=== PATIENT | male | born 1975 | race Caucasian/White ===

== ENCOUNTER 2018-02-09 19:14 | Emergency (ER) | payer OTHER ==
[2018-02-09 19:20] VITALS: BP 131/87; PULSE 99; TEMP 98.7; BMI 31.6
--- NOTE | 2018-02-09 20:11 | PDOC ---
History of Present Illness - General History Source: Patient - History of Present Illness Initial Comments: 02/09/18 20:30 42 year old male with a PMH of umbilical hernia presents to the ED c/o 4 day h/ o hemorrhoids. Patient states he noticed the hemorrhoid four days previous and they became painful the last 2 days prompting his visit to our ED today. Patient notes he has had hemorrhoids on one prior occasion which resolved in 2- 3 days using OTC Preparation H however it did not work on these hemorrhoids. Patient's last bowel movement was prior to presentation and he denies any noticed blood or tenesmus. Patient denies a baseline h/o constipation. NKDA Surgical: umbilical hernia repair Social: denies nicotine, denies recreational drugs PMD: Dr. Analisa Paniagua <Mayi Hunter - Last Filed: 02/10/18 03:02> <Ezequiel Wills - Last Filed: 02/12/18 17:34> - General Chief Complaint: Pain Stated Complaint: Hemorrhoids Time Seen by Provider: 02/09/18 19:54 Past History - Past Medical History COPD: No - Surgical History Abdominal Surgery: Yes (umbilical hernia) - Suicide/Smoking/Psychosocial Hx Smoking History: Never smoked Hx Alcohol Use: No Drug/Substance Use Hx: No Substance Use Type: None <Mayi Hunter - Last Filed: 02/10/18 03:02> <Ezequiel Wills - Last Filed: 02/12/18 17:34> - Past Medical History Allergies/Adverse Reactions: Allergies Allergy/AdvReac Type Severity Reaction Status Date / Time No Known Allergies Allergy Verified 02/09/18 19:18 Home Medications: Ambulatory Orders Hydrocortisone [Preparation H] 26 gm TP ASDIR 02/09/18 Review of Systems - Review of Systems Constitutional: No: Chills, Fever Respiratory: No: Cough, Shortness of Breath Cardiac (ROS): No: Chest Pain, Lightheadedness, Palpitations ABD/GI: No: Constipated, Diarrhea, Nausea, Vomiting : No: Burning, Dysuria <Mayi Hunter - Last Filed: 02/10/18 03:02> *Physical Exam - Vital Signs Last Vital Signs Temp Pulse Resp BP Pulse Ox 98.7 F 99 H 22 131/87 99 02/09/18 19:19 02/09/18 19:19 02/09/18 19:19 02/09/18 19:19 02/09/18 19:19 - Physical Exam Comments: 02/09/18 22:03 GENERAL: Awake, alert, and fully oriented HEAD: No signs of trauma EYES: PERRLA, EOMI, sclera anicteric, conjunctiva clear ENT: Auricles normal inspection, hearing grossly normal, nares patent, oropharynx clear without exudates. Moist mucosa LUNGS: Breath sounds equal, clear to auscultation bilaterally. No wheezes, and no crackles HEART: Regular rate and rhythm, normal S1 and S2, no murmurs, rubs or gallops ABDOMEN: Soft, nontender, normoactive bowel sounds. No guarding, no rebound. No masses EXTREMITIES: Normal range of motion, no edema. No clubbing or cyanosis. No cords, erythema, or tenderness NEUROLOGICAL: Cranial nerves II through XII intact. 5/5 strength and sensation in all extremities, Normal speech, normal gait, normal cerebellar function SKIN: Warm, Dry, multiple external hemorrhoids; ovoid, hard 2.5 cm diameter - thrombosed; 0.5 cm diameter ovoid hemorrhoid x2 - soft <Mayi Hunter - Last Filed: 02/10/18 03:02> - Vital Signs Last Vital Signs Temp Pulse Resp BP Pulse Ox 98.7 F 99 H 22 131/87 99 02/09/18 19:19 02/09/18 19:19 02/09/18 19:19 02/09/18 19:19 02/09/18 19:19 <Ezequiel Wills - Last Filed: 02/12/18 17:34> ED Treatment Course - Medications Given in the ED: ED Medications Discontinued Medications Generic Name Dose Route Start Last Admin Trade Name Freq PRN Reason Stop Dose Admin Lidocaine HCl 10 ml 02/09/18 20:25 02/09/18 20:39 Xylocaine 2% Uro-Jet FL 02/09/18 20:26 10 ml ONCE ONE Administration <Ezequiel Wills - Last Filed: 02/12/18 17:34> Medical Decision Making - Medical Decision Making 02/09/18 21:43 42 year old male presents with external thrombosed hemmorhoid. VS unremarkable. Normal BM w/o any noticed rectal bleeding. 02/10/18 02:12 Application of viscous lidocaine with significant pain relief. Patient referred to general surgery for excision. I discussed the physical exam findings, ancillary test results and final diagnoses with the patient. I answered all of the patient's questions. The patient was satisfied with the care received and felt comfortable with the discharge plan and treatment plan. The patient will return to the Emergency Department with any new, persistent or worsening symptoms. <Mayi Hunter - Last Filed: 02/10/18 03:02> *DC/Admit/Observation/Transfer - Discharge Dispostion Admit: No <Mayi Hunter - Last Filed: 02/10/18 03:02> <Ezequiel Wills - Last Filed: 02/12/18 17:34> Diagnosis at time of Disposition: Thrombosed external hemorrhoid - Discharge Dispostion Disposition: HOME Condition at time of disposition: Good - Referrals Referrals: Analisa Paniagua [Primary Care Provider] - Stiven Rueda MD [Staff Physician] - - Patient Instructions Printed Discharge Instructions: DI for Hemorrhoids Additional Instructions: Please make a follow-up appointment with general surgery, Dr. Stiven Rueda, for excision of your hemorrhoid. Overnight, you can continue to apply the lidocaine jelly for pain relief. To prevent future hemorrhoids drink lots of water and eat a lot of fiber including leafy green vegetables. Follow up with your primary care doctor in the next 2 days for further evaluation and return to the Emergency Department for any new/worsening/ concerning symptoms. - Post Discharge Activity Forms/Work/School Notes: Back to Work
--- NOTE | 2018-02-09 20:18 | PDOC ---
Attending Attestation - Resident Resident Name: Mateusz Hunterica - ED Attending Attestation I have performed the following: I have examined & evaluated the patient, The case was reviewed & discussed with the resident, I agree w/resident's findings & plan, Exceptions are as noted - HPI HPI: 02/09/18 20:25 42y M hx hernia presents with increased rectal pain x 4 days, pt notes that he had increased rectal pain after having a BM 4 days ago. constant nonradiating pain, no ever/chills, n/v, diarrhea, melena.pt iwth prior history of hemorroids but has never been painful for so long. pt using preparation H with out significant improvement pt with thrombosed hemorroid that is painful to touch. no signs of erythema/ induration/fluctuance will give topical lido will refer to surgery - Physicial Exam PE: 02/10/18 08:30 see above - Medical Decision Making 02/10/18 08:30 florentin asenz
[2018-02-09] MEDS ORDERED: LIDOCAINE HCL 2% JELLY 10 ML CARTRIDGE PR ONE (20:25)
[2018-02-09] MEDS ORDERED: LIDOCAINE HCL 2% JELLY (5 ML/TUBE) ONE (20:34)
[2018-02-09] MEDS ORDERED: LIDOCAINE HCL 2% JELLY 10 ML CARTRIDGE ONE (20:35)
== END 2018-02-09 22:10 | disposition home or self-care (01) ==
LOC: JER 19:14
DX: K64.5 Perianal venous thrombosis (principal)
CPT/HCPCS: 99282-25

== ENCOUNTER 2018-11-13 05:17 | Day surgery (SDC) | payer OTHER ==
[2018-11-11 11:38] VITALS: BMI 35.2
[2018-11-13 08:46] LABS: HEMATOCRIT 47.5 % (35.4-49); HEMOGLOBIN 16.4 GM/dL (11.7-16.9); MCH 29.8 pg (25.7-33.7); MCHC 34.5 g/dl (32.0-35.9); MEAN CELL VOLUME 86.4 fl (80-96); MEAN PLT VOLUME 8.8 fl (7.5-11.1); PLATELET COUNT 270 K/MM3 (134-434); RDW 14.2 % (11.9-15.9); WHITE BLOOD COUNT 6.2 K/mm3 (4.0-10.0)
[2018-11-13] MEDS ORDERED: PROPOFOL 20 ML ONE ×3 (09:44→10:17)
[2018-11-13] MEDS ORDERED: MIDAZOLAM HCL 2 MG/2 ML SINGLE DOSE VIAL ONE (09:44)
[2018-11-13] MEDS ORDERED: ROCURONIUM BROMIDE 50 MG/5 ML VIAL ONE (09:55)
[2018-11-13] MEDS ORDERED: BUPIVACAINE HCL/PF 0.5% (5MG/ML) 10 ML VIAL ONE (10:01)
[2018-11-13] MEDS ORDERED: LIDOCAINE HCL 1%, 10 MG/ML (20ML VIAL) ONE (10:01)
--- NOTE | 2018-11-13 10:01 | HP ---
History & Physical Update - History History: No Change - Physical Physical: No Change - Assessment Assessment: No Change - Plan Plan: No Change (for EUA/rigid sigmoidoscopy/external; possible internal hemorrhoidectomy; r/b/t/a/'s d/w him pre-op and informed consent obtained.)
[2018-11-13] MEDS ORDERED: BENZOIN TINCTURE SWABSTICK TP ONE (10:32)
[2018-11-13] MEDS ORDERED: BUPIVACAINE HCL/PF (5 MG/ML) 30 ML VIAL IJ ONE (10:59)
[2018-11-13] MEDS ORDERED: LIDOCAINE HCL 1%, 10 MG/ML (20ML VIAL) PNB ONE (10:59)
[2018-11-13] MEDS ORDERED: NEOSTIGMINE METHYLSULFATE 0.5 MG/ML - 10 ML MDV ONE (11:15)
[2018-11-13] MEDS ORDERED: PHENYLEPHRINE HCL 10 MG/1 ML SINGLE DOSE VIAL ONE (11:15)
[2018-11-13] MEDS ORDERED: KETOROLAC TROMETHAMINE 30 MG/1 ML VIAL ONE (11:18)
[2018-11-13] MEDS ORDERED: GLYCOPYRROLATE 0.2 MG/1 ML VIAL ONE (11:18)
[2018-11-13] MEDS ORDERED: oxyCODONE HCL 5 MG TABLET PO PRN (12:37)
[2018-11-13] MEDS ORDERED: ONDANSETRON 4 MG/2 ML VIAL IVPUSH PRN (12:37)
[2018-11-13] MEDS ORDERED: LACTATED RINGERS SOLUTION 1,000 ML IV SCH (12:45)
[2018-11-13 17:14] VITALS: BP 100/63; PULSE 68; TEMP 98.2
--- NOTE | 2018-11-13 21:50 | OP ---
DATE OF OPERATION: 11/13/2018 PREOPERATIVE DIAGNOSIS: External hemorrhoids, rule out further pathology. POSTOPERATIVE DIAGNOSIS: External hemorrhoids. PROCEDURE: Examination under anesthesia, rigid proctosigmoidoscopy, and external single hemorrhoidectomy. SURGEON: Stiven Rueda MD ANESTHESIA: General. OPERATIVE FINDINGS: There was a single enlarged external hemorrhoidal complex. The rest of the findings were unremarkable. DESCRIPTION OF PROCEDURE: The patient was placed on the operating table in the supine jackknife position. After the induction of general anesthesia, in the supine position on a stretcher, patient was appropriately padded while in the prone jackknife position. The buttocks were taped laterally on each side to provide maximum exposure, and then, a timeout was taken. Rigid proctosigmoidoscopy was carried out where the previously noted findings were observed. Next, local anesthesia in the perianal area was placed with 1% Xylocaine and 0.5% Marcaine in equal concentration. The external hemorrhoidal complex was grasped, and the anoderm and mucosa incised with the electrocautery. Fixation stitch of 3-0 chromic was placed at the base of the hemorrhoidal complex and tied, and then, the external hemorrhoid dissected off the sphincter mechanism using blunt and sharp dissection. Once dissection was carried up to the fixating suture, the hemorrhoidal complex was removed and sent for pathological examination, and the mucosa and anoderm closed using continuous locked 3-0 chromic. No further pathology was evident for excision. Then, the wound was dressed with Xeroform gauze and dry sterile dressings and the procedure terminated at this point and the patient aroused from general anesthesia after being turned into the supine position on a stretcher and subsequently transferred to the postanesthesia care unit in stable condition, awake and alert. ESTIMATED BLOOD LOSS: None. SPECIMENS: External hemorrhoidal complex to Pathology. I, Stiven Rueda, was physically present in the operating room from the time the patient was placed on the operating table until he was transferred to the postanesthesia care unit in my accompaniment. MD NITESH Cornejo/[id number] MTDD
--- NOTE | 2018-11-16 17:15 | PATH ---
Surgical Pathology Report Patient Name: JENNIFER ARRIOLA [facility]. Rec. #: [id number] /Age/Gender: 1975 (Age: 43) / M Account: [id number] Location: [facility] SURGICAL Taken: 11/13/2018 Received: 11/13/2018 Reported: 11/16/2018 Physicians: Stiven Rueda MD Specimen(s) Received EXTERNAL HEMORRHOID Clinical History External hemorrhoid Final Diagnosis EXTERNAL HEMORRHOIDS, HEMORRHOIDECTOMY: POLYPOID SQUAMOUS MUCOSA WITH MODERATE CHRONIC FOCAL ACUTE INFLAMMATION AND FEW DILATED THICK WALLED CONGESTED SUBMUCOSAL VESSELS CONSISTENT WITH HEMORRHOIDS. Electronically Signed Analisa Alas M.D. Gross Description Received in formalin labeled "external hemorrhoid," is a 2.1 x 2.0 x 0.6 cm duran, polypoid portion of skin. The base is inked blue and the specimen is bisected and entirely submitted in 2 cassettes. DL/11/13/2018 saudi11/13/2018
== END 2018-11-13 16:45 | disposition home or self-care (01) ==
LOC: JASU-SURG 05:17
PROVIDERS: ATTEND Surgery
PROC: 06BY0ZC Excision of Hemorrhoidal Plexus, Open Approach (ICD-10-PCS; principal; 2018-11-13 10:00)
DX: K64.8 Other hemorrhoids (principal)
CPT/HCPCS: 36415; 85027; 88304-TC; 94760

== ENCOUNTER 2022-02-11 20:50 | Emergency (ER) | payer OTHER ==
[2022-02-11 21:01] VITALS: BP 143/83; PULSE 97; TEMP 97.8; BMI 37.0
[2022-02-11] MEDS ORDERED: SODIUM CHLORIDE 1,000 ML IV STA (22:35)
[2022-02-11] MEDS ORDERED: ACETAMINOPHEN 1000 MG/100 ML BAG IVPB ONE ×2 (22:35→22:41)
[2022-02-11] MEDS ORDERED: ACETAMINOPHEN INJECTION 100 ML IVPB ONE (22:43)
[2022-02-11 23:07] LABS: BASO % 0.2 % (0-2.0); EOS % 1.5 % (0-4.5); HEMATOCRIT 46.9 % (35.4-49); HEMOGLOBIN 15.6 GM/dL (11.7-16.9); LYMPH % 36.2 % (8-40); MCH 28.2 pg (25.7-33.7); MCHC 33.2 g/dl (32.0-35.9); MEAN CELL VOLUME 84.9 fl (80-96); MEAN PLT VOLUME 8.6 fl (7.5-11.1); MONO % 14.9 % (3.8-10.2); NEUT % 47.2 % (42.8-82.8); PLATELET COUNT 232 10^3/uL (134-434); RBC 5.52 M/mm3 (4.00-5.60); RDW 14.1 % (11.9-15.9); WHITE BLOOD COUNT 5.3 K/mm3 (4.0-10.0)
[2022-02-11 23:27] LABS: ALBUMIN 3.7 g/dl (3.4-5.0); CALCIUM 8.9 mg/dL (8.5-10.1); MAGNESIUM 2.3 mg/dL (1.8-2.4)
[2022-02-11 23:29] LABS: BLOOD UREA NITROGEN 6.8 mg/dL (7-18)
[2022-02-11 23:31] LABS: CREATININE 0.9 mg/dL (0.55-1.3); PHOSPHOROUS 2.7 mg/dL (2.5-4.9)
[2022-02-11 23:33] LABS: BILIRUBIN,TOTAL 0.5 mg/dL (0.2-1); TOT PROT 7.2 g/dl (6.4-8.2)
== END 2022-02-12 00:12 | disposition home or self-care (01) ==
LOC: JER 20:50
PROC: 3E0333Z Introduction of Anti-inflammatory into Peripheral Vein, Percutaneous Approach (ICD-10-PCS; principal; 2022-02-11)
PROC: 3E0337Z Introduction of Electrolytic and Water Balance Substance into Peripheral Vein, Percutaneous Approach (ICD-10-PCS; 2022-02-11)
DX: K52.9 Noninfective gastroenteritis and colitis, unspecified (principal)
CPT/HCPCS: 36415; 80053; 83735; 84100; 85025; 99284-25